=== PATIENT | male | born 1955 | race Caucasian/White ===

== ENCOUNTER 2018-11-14 06:50 | Day surgery (SDC) | payer OTHER ==
[2018-11-13 10:48] VITALS: BMI 25.7
[~2018-11-14 06:50] MED LIST: Fluorouracil 100 MG, Enoxaparin Sodium 25 MG in Ophthalmic Irrigation Solution 500 ML IRR SCH
[2018-11-14] MEDS ORDERED: Phenylephrine 2.5% Ophth Soln 5 ML BOT ONE (07:50)
[2018-11-14] MEDS ORDERED: Cyclopentolate 1% Opth Drop 2 ML BOT ONE (07:50)
[2018-11-14] MEDS ORDERED: Midazolam HCl 2 mg/2 ml Vial ONE (08:30)
[2018-11-14] MEDS ORDERED: PROPOFOL 20 ML ONE (08:30)
[2018-11-14] MEDS ORDERED: Fentanyl 100 MCG/2 ML VIAL ONE (08:30)
--- NOTE | 2018-11-14 10:24 | OP ---
DATE OF PROCEDURE: 11/14/2018 PREOPERATIVE DIAGNOSIS: Macular hole, right eye. POSTOPERATIVE DIAGNOSIS: Macular hole, right eye PROCEDURE PERFORMED: Pars plana vitrectomy and internal limiting membrane peel, right eye. ANESTHESIA: Local with monitored anesthesia care. COMPLICATIONS: None. PROCEDURE IN DETAIL: The patient was identified in the preoperative holding area. Appropriate informed consent for the planned surgical procedure on the right eye had been obtained. The patient was transported to the operative suite, where appropriate cardiopulmonary monitoring was established. Local anesthesia obtained using retrobulbar modified [place] Lint lid block using 50:50 mixture of 4% lidocaine and 0.75% bupivacaine. The patient was prepped and draped in the usual sterile manner for ophthalmic surgery on the right eye. Lid speculum was placed in the right eye. A 25-gauge trocar was placed through the conjunctivae and sclera superotemporally, inferotemporally, and superonasally. Infusion line was placed inferotemporally. Light pipe and vitreous cutter inserted into the eye. Core vitrectomy was performed. Indocyanine green dye was infused on the posterior pole x1 identifying the internal limiting membrane and epiretinal membrane. This was elevated using a membrane scraper and peeled across the macula using end-gripping forceps. Previous laser was inspected through the periphery. Complete air-fluid exchange was performed with 10 minutes being left for fluid to drain posteriorly. 28% sulfur hexafluoride gas was infused into the eye. Trocars were removed. Superior sclerotomy was suture closed. Retrobulbar Kenalog and subconjunctival Ancef were placed. Antibiotic ointment was placed and the eye was patched and shielded. The patient was taken to the postoperative recovery unit in good condition, having suffered no immediate perioperative complications. The patient was instructed to keep patch and shield on, avoid lifting and bending, and followup appointment with Dr. Dove. Job ID: [id number]
[2018-11-14] MEDS ORDERED: Triamcinolone 40 MG/ML VIAL ONE (17:14)
[2018-11-14] MEDS ORDERED: Indocyanine Green 25 MG/10 ML VIAL ONE (17:14)
[2018-11-14] MEDS ORDERED: CEFAZOLIN 1 GM VIAL ONE (17:14)
[2018-11-14] MEDS ORDERED: Lidocaine 4% PF 5 ML AMP ONE (17:14)
[2018-11-14] MEDS ORDERED: Bupivacaine 0.75% 10 ML AMP ONE (17:14)
[2018-11-14] MEDS ORDERED: Maxitrol 0.1% Opth Oint 3.5 GM TUBE ONE (17:14)
[2018-11-14] MEDS ORDERED: Lidocaine 1% PF 5 ML VIAL ONE (17:14)
[2018-11-14] MEDS ORDERED: PROPOFOL 200 MG/20 ML VIAL ONE (17:14)
[2018-11-21] MEDS ORDERED: Fluorouracil 100 MG, Enoxaparin Sodium 25 MG in Ophthalmic Irrigation Solution 500 ML IRR SCH (06:00)
== END 2018-11-14 10:49 | disposition home or self-care (01) ==
LOC: SDC 06:50
PROVIDERS: ATTEND Ophthalmology Retina Specialist
PROC: 08NE3ZZ Release Right Retina, Percutaneous Approach (ICD-10-PCS; principal; 2018-11-14)
PROC: 08T43ZZ Resection of Right Vitreous, Percutaneous Approach (ICD-10-PCS; principal; 2018-11-14)
DX: H35.341 Macular cyst, hole, or pseudohole, right eye (principal); Z79.899 Other long term (current) drug therapy
CPT/HCPCS: 67025; J0690; J1650; J2001; J2250; J2704; J3010; J3301; J3490; J9190

== ENCOUNTER 2019-02-08 19:29 | Emergency (ER) | payer SELFPAY ==
[2019-02-08] MEDS ORDERED: Nitroglycerin 2% Ointment 1 INCH/1 GM Packet ONE (20:11)
[2019-02-08 20:17] LABS: #Basophils 0.1 thou/uL (0.0-0.2); #Eosinphils 0.1 thou/uL (0.0-0.7); #Lymphocytes 1.4 thou/uL (1.20-3.40); #Monocytes 0.6 thou/uL (0.11-0.59); #Neutrophils 4.1 thou/uL (1.40-6.50); %Basophils 1.7 % (0.0-1.0); %Eosinophils 1.8 % (0.0-10.0); %Lymphocytes 21.6 % (21.0-51.0); %Monocytes 9.6 % (0.0-10.0); %Neutrophils 65.3 % (42.0-75.0); Hemoglobin 13.3 g/dL (14.0-18.0); Mean Corpuscular HGB CONC 34.2 g/dL (32.0-36.0); Mean Corpuscular Hemoglobin 31.9 pg (27.0-31.0); Mean Corpuscular Volume 93.2 fL (78.0-98.0); Mean Platelet Volume 5.6 fL (7.4-10.4); Platelet Count 210 thou/uL (130-400); RBC Distribution Width 12.6 % (11.5-14.5); Red Blood Cell (RBC) Count 4.17 mill/uL (4.70-6.10); White Blood Cell (WBC) Count 6.2 thou/uL (4.8-10.8)
[2019-02-08 20:36] LABS: ALT (SGPT) 38 U/L (8-55); AST (SGOT) 30 U/L (5-34); Albumin 4.3 g/dL (3.4-4.8); Alkaline Phosphatase 56 U/L (40-150); Anion Gap 14 mmol/L (10-20); BUN (Urea Nitrogen) 14 mg/dL (8.4-25.7); Bilirubin, Total 0.4 mg/dL (0.2-1.2); Calc. Creatinine Clearance 0 mL/min (70-130); Calcium 8.8 mg/dL (7.8-10.44); Carbon Dioxide 23 mmol/L (23-31); Chloride 108 mmol/L (98-107); Estimated GFR-MDRD 78; Globulin 2.6 g/dL (2.4-3.5); Glucose 91 mg/dL (80-115); Lipase 39 U/L (8-78); Protein, Total 6.9 g/dL (5.8-8.1); Sodium 141 mmol/L (136-145)
--- NOTE | 2019-02-08 20:44 | RAD ---
XR Chest 1 View Portable History: Chest pain Comparison: None. Findings: Lungs are clear. No pneumothorax or effusion. Cardiac silhouette and mediastinal contours a re within normal limits. Impression: No acute intrathoracic abnormality.
[2019-02-08] MEDS ORDERED: Lidocaine Viscous Sol 2% 15 ml UD Cup ONE (20:54)
[2019-02-08] MEDS ORDERED: Mag-Al Plus 1200 MG/1200 MG/120 MG/30 ML UDCUP ONE (20:54)
== END 2019-02-08 21:47 | disposition home or self-care (01) ==
LOC: SCSER 19:29
DX: R07.89 Other chest pain (principal); I95.9 Hypotension, unspecified; E78.5 Hyperlipidemia, unspecified; Z79.899 Other long term (current) drug therapy
CPT/HCPCS: 71045; 80053; 83690; 84484; 85025; 93005

== ENCOUNTER 2023-03-02 14:51 | Day surgery (SDC) | payer MEDICARE, OTHER ==
[2023-03-02] MEDS ORDERED: EPINEPHrine 0.3 MG in Ophthalmic Irrigation Solution 500 ML IRR SCH (16:15)
[2023-03-02] MEDS ORDERED: PHENYLephrine 2.5% Ophth Soln 15 ml Bottle ONE (16:27)
[2023-03-02] MEDS ORDERED: Cyclopentolate 2% Opth Drop 15 ML BOT ONE (16:27)
[2023-03-02] MEDS ORDERED: Midazolam HCl 2 mg/2 ml Vial ONE (17:41)
[2023-03-02] MEDS ORDERED: fentaNYL 50 mcg/mL 1 mL Vial ONE (17:46)
[2023-03-02] MEDS ORDERED: Lidocaine 1% PF 5 ML VIAL ONE (17:52)
[2023-03-02] MEDS ORDERED: Lidocaine 4% PF 5 ML AMP ONE (17:52)
[2023-03-02] MEDS ORDERED: PROPOFOL 200 MG/20 ML VIAL ONE (17:52)
[2023-03-02] MEDS ORDERED: Triamcinolone 40 MG/ML VIAL ONE (17:52)
[2023-03-02] MEDS ORDERED: Bupivacaine 0.75% 10 ML VIAL ONE (17:52)
== END 2023-03-02 19:49 | disposition home or self-care (01) ==
LOC: SDC 14:51
PROVIDERS: ATTEND Ophthalmology Retina Specialist
PROC: 08T53ZZ Resection of Left Vitreous, Percutaneous Approach (ICD-10-PCS; principal; 2023-03-02)
DX: H33.002 Unspecified retinal detachment with retinal break, left eye (principal)
CPT/HCPCS: J2250; J2704; J3010; J3301; J3490